=== PATIENT | female | born 1990 | race Caucasian/White ===

== ENCOUNTER 2018-01-07 07:24 | Emergency (ER) | payer OTHER | END 2018-01-07 07:48 | disposition home or self-care (01) | LOC: ERS 07:24 | DX: S39.012A Strain of muscle, fascia and tendon of lower back, initial encounter (principal); R00.0 Tachycardia, unspecified; F41.9 Anxiety disorder, unspecified; F32.9 Major depressive disorder, single episode, unspecified; X58.XXXA Exposure to other specified factors, initial encounter | CPT/HCPCS: 93005 ==